=== PATIENT | male | born 1975 | race Caucasian/White ===

== ENCOUNTER 2025-04-18 08:01 | Outpatient (CLI) | payer BC ==
[2025-04-18] MEDS ORDERED: Iopamidol-370 76% 500 ML MDV (1 ML CHARGE) ONE (15:12)
== END 2025-04-18 08:02 | disposition home or self-care (01) ==
LOC: CT 08:01
PROVIDERS: ATTEND Urology
DX: D35.01 Benign neoplasm of right adrenal gland (principal); N48.6 Induration penis plastica; K22.89 Other specified disease of esophagus; K76.0 Fatty (change of) liver, not elsewhere classified
CPT/HCPCS: 74170; Q9967